=== PATIENT | male | born 1950 | race Caucasian/White ===

== ENCOUNTER 2018-05-09 21:43 | Emergency (ER) | payer OTHER, MEDICARE ==
[2018-05-09] MEDS ORDERED: Bacitracin Oint 1 GM U/D Packet ONE (22:56)
[2018-05-09] MEDS ORDERED: Bacitracin Oint 1 GM U/D Packet TOP ONE (22:56)
--- NOTE | 2018-05-09 22:56 | EDM.PDOC ---
ED HPI GENERAL MEDICAL PROBLEM - General Chief Complaint: General Stated Complaint: FISH HOOK LT PINKY Time Seen by Provider: 05/09/18 22:48 Source of Information: Reports: Patient History Limitations: Reports: No Limitations - History of Present Illness INITIAL COMMENTS - FREE TEXT/NARRATIVE: fish hook to left 5th finger. this is a 67 year old male present to ER for removal of fish hook. He was fishing, got a hook to the finger. no other concerns. Onset: Sudden Duration: Hour(s): Location: Reports: Upper Extremity, Left Quality: Reports: Ache Severity: Mild Improves with: Reports: Immobilization Worsens with: Reports: Movement Context: Reports: Other (fish hook) Associated Symptoms: Reports: No Other Symptoms Left 5-Little finger Pain Score (Numeric/FACES): 1 - Related Data Allergies Allergy/AdvReac Type Severity Reaction Status Date / Time azithromycin Allergy Rash Verified 05/09/18 22:26 Home Meds: Home Meds Ascorbate Calcium [Vitamin C] 1 tab PO DAILY 05/09/18 [History] Aspirin 1 tab PO DAILY 05/09/18 [History] Calcium Carbonate/Vitamin D3 [Calcium 500 mg-Vit D3 600 Unit] 1 tab PO DAILY [History] Cholecalciferol (Vitamin D3) [Vitamin D3] 1 tab PO DAILY 05/09/18 [History] Mometasone Furoate [Nasonex] 2 dose NASBOTH BID 05/09/18 [History] Naproxen 1 tab PO DAILY 05/09/18 [History] Omeprazole 1 tab PO DAILY 05/09/18 [History] Tamsulosin [Flomax] 1 tab PO DAILY 05/09/18 [History] Past Medical History Respiratory History: Reports: Asthma Genitourinary History: Reports: Retention, Urinary Oncologic (Cancer) History: Reports: Basal Cell Carcinoma - Infectious Disease History Infectious Disease History: Reports: Chicken Pox, Measles, Mumps - Past Surgical History HEENT Surgical History: Reports: Polypectomy, Other (See Below) Other HEENT Surgeries/Procedures: sinus surgery x3 GI Surgical History: Reports: Colonoscopy Musculoskeletal Surgical History: Reports: Other (See Below) Other Musculoskeletal Surgeries/Procedures:: discectomy x3 Social & Family History - Family History Family Medical History: Noncontributory - Tobacco Use Smoking Status *Q: Current Every Day Smoker Years of Tobacco use: 30 Packs/Tins Daily: 0.7 - Caffeine Use Caffeine Use: Reports: Coffee - Recreational Drug Use Recreational Drug Use: No ED ROS GENERAL - Review of Systems Review Of Systems: See Below Constitutional: Reports: No Symptoms Skin: Reports: Other (fish hook to left 5th finger) Hematologic/Lymphatic: Reports: No Symptoms Immunologic: Reports: No Symptoms ED EXAM, GENERAL - Physical Exam Exam: See Below Exam Limited By: No Limitations General Appearance: Alert, WD/WN, No Apparent Distress Neurological: Alert, Oriented, No Motor/Sensory Deficits Skin Exam: Warm, Dry, Other (f.b. to left 5th finger) ED GENERAL MEDICAL PROCEDURES - Laceration/Wound Repair Left Anterior Digit - 5th (Baby) Appearance: Subcutaneous Distal NVT: Neuro & Vascular Intact, No Tendon Injury Anesthetic Type: Local Local Anesthesia - Lidocaine (Xylocaine): 1% Plain Local Anesthetic Volume: 1cc Skin Prep: Chlorhexidine (Hibiciens), Providone-Iodine (Betadine) Complications: No Progress/Comments: 5th finger with fish hook; injected lidocaine 1% , anaesthesia obtained, fish hook removed without complication. bacitracin ointment and bandage applied by nursing. discussed wound care and monitor for signs of infections. agree with plan of care. Course - Vital Signs Last Recorded V/S: Last Vital Signs Temp 36.1 C 05/09/18 22:34 Pulse 78 05/09/18 22:34 Resp 16 05/09/18 22:34 BP 108/75 05/09/18 22:34 Pulse Ox 98 05/09/18 22:34 - Orders/Labs/Meds Meds: Medications Discontinued Medications Generic Name Dose Route Start Last Admin Trade Name Roxana PRN Reason Stop Dose Admin Bacitracin 1 dose 05/09/18 22:56 05/09/18 23:00 Bacitracin Oint 1 Gm TOP 05/09/18 22:57 1 dose ONETIME ONE Administration Bacitracin Confirm 05/09/18 22:56 05/09/18 23:00 Bacitracin Oint 1 Gm Administered 05/09/18 22:57 Not Given Dose 1 dose .ROUTE .STK-MED ONE Lidocaine HCl 5 ml 05/09/18 22:53 05/09/18 23:00 Xylocaine-Mpf 1% INJECT 05/09/18 22:54 5 ml ONETIME ONE Administration Departure - Departure Time of Disposition: 22:53 Disposition: Home, Self-Care 01 Clinical Impression: Fish hook injury of finger Qualifiers: Encounter type: initial encounter Laterality: left Qualified Code(s): S69.92XA - Unspecified injury of left wrist, hand and finger(s), initial encounter - Discharge Information Instructions: Puncture Wound, [id number] Referrals: PCP,None [Primary Care Provider] - Forms: ED Department Discharge Care Plan Goals: fish hook in 5th finger -removed, apply bacitracin ointment to finger 2 times a day for 2 days then keep clean and dry -monitor for signs of infection return to Clinic or ER for if develops any redness, drainage or increased pain. - Problem List & Annotations (1) Fish hook injury of finger SNOMED Code(s): 60407951 Code(s): S69.90XA - UNSP INJURY OF UNSP WRIST, HAND AND FINGER(S), INIT ENCNTR Status: Acute Priority: High Current Visit: Yes Qualifiers: Encounter type: initial encounter Laterality: left Qualified Code(s): S69.92XA - Unspecified injury of left wrist, hand and finger(s), initial encounter - Problem List Review Problem List Initiated/Reviewed/Updated: Yes - Assessment/Plan Plan: fish hook in 5th finger left -removed, apply bacitracin ointment to finger 2 times a day for 2 days then keep clean and dry -monitor for signs of infection return to Clinic or ER for if develops any redness, drainage or increased pain.
== END 2018-05-09 23:10 | disposition home or self-care (01) ==
LOC: JP.ED 21:43
DX: S60.457A Superficial foreign body of left little finger, initial encounter (principal); F17.210 Nicotine dependence, cigarettes, uncomplicated; Z88.1 Allergy status to other antibiotic agents; Z79.82 Long term (current) use of aspirin; Z79.899 Other long term (current) drug therapy; W45.8XXA Other foreign body or object entering through skin, initial encounter
CPT/HCPCS: 99283

== ENCOUNTER 2018-06-09 12:50 | Emergency (ER) | payer MEDICARE, OTHER ==
[2018-06-09] MEDS ORDERED: Bacitracin Oint 1 GM U/D Packet TOP ONE (13:12)
--- NOTE | 2018-06-09 13:38 | EDM.PDOC ---
ED HPI GENERAL MEDICAL PROBLEM - General Chief Complaint: Skin Complaint Stated Complaint: FISH HOOK Time Seen by Provider: 06/09/18 13:15 Source of Information: Reports: Patient History Limitations: Reports: No Limitations - History of Present Illness INITIAL COMMENTS - FREE TEXT/NARRATIVE: 68 yo male here with a fish hook in his L index. Tetanus is UTD. 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 (see below) (none) - Related Data Allergies Allergy/AdvReac Type Severity Reaction Status Date / Time azithromycin Allergy Rash Verified 05/09/18 22:26 Home Meds: Home Meds Ascorbate Calcium [Vitamin C] 1 tab PO DAILY 05/09/18 [History] Aspirin 1 tab PO DAILY 05/09/18 [History] Calcium Carbonate/Vitamin D3 [Calcium 500 mg-Vit D3 600 Unit] 1 tab PO DAILY [History] Cholecalciferol (Vitamin D3) [Vitamin D3] 1 tab PO DAILY 05/09/18 [History] Mometasone Furoate [Nasonex] 2 dose NASBOTH BID 05/09/18 [History] Naproxen 1 tab PO DAILY 05/09/18 [History] Omeprazole 1 tab PO DAILY 05/09/18 [History] Tamsulosin [Flomax] 1 tab PO DAILY 05/09/18 [History] predniSONE 06/09/18 [History] Past Medical History Respiratory History: Reports: Asthma Genitourinary History: Reports: Retention, Urinary Oncologic (Cancer) History: Reports: Basal Cell Carcinoma - Infectious Disease History Infectious Disease History: Reports: Chicken Pox, Measles, Mumps - Past Surgical History HEENT Surgical History: Reports: Polypectomy, Other (See Below) Other HEENT Surgeries/Procedures: sinus surgery x3 GI Surgical History: Reports: Colonoscopy Musculoskeletal Surgical History: Reports: Other (See Below) Other Musculoskeletal Surgeries/Procedures:: discectomy x3 Social & Family History - Family History Family Medical History: Noncontributory - Tobacco Use Smoking Status *Q: Former Smoker Used Tobacco, but Quit: Yes Month/Year Tobacco Last Used: 1 - Caffeine Use Caffeine Use: Reports: None ED ROS GENERAL - Review of Systems Review Of Systems: See Below Constitutional: Reports: No Symptoms Musculoskeletal: Reports: No Symptoms Skin: Reports: Wound (puncture wound L index) Neurological: Reports: No Symptoms ED EXAM, SKIN/RASH Exam: See Below Exam Limited By: No Limitations General Appearance: Alert, WD/WN, No Apparent Distress Extremities: Normal Inspection Neurological: Alert, Oriented, CN II-XII Intact, Normal Cognition Psychiatric: Normal Affect, Normal Mood Skin: Warm, Dry, Normal Color, No Rash, Wound/Incision Location, Skin: Upper Extremity, Left Characteristics: Other (puncture from fish hook) Associated features: Tenderness Course - Vital Signs Text/Narrative:: Area prep'd with Betadine, anesth with 1% lidocaine, aye of fish hook covered with #18 gauge and backed out. Dressing per RN. Last Recorded V/S: Last Vital Signs Temp 35.2 C L 06/09/18 13:04 Pulse 82 06/09/18 13:04 Resp 18 06/09/18 13:04 BP 158/77 H 06/09/18 13:04 Pulse Ox 98 06/09/18 13:04 - Orders/Labs/Meds Meds: Medications Discontinued Medications Generic Name Dose Route Start Last Admin Trade Name Leonardoq PRN Reason Stop Dose Admin Bacitracin 1 dose 06/09/18 13:12 06/09/18 13:15 Bacitracin Oint 1 Gm TOP 06/09/18 13:13 1 dose ONETIME ONE Administration Lidocaine HCl 5 ml 06/09/18 13:12 06/09/18 13:15 Xylocaine-Mpf 1% INJECT 06/09/18 13:13 5 ml ONETIME ONE Administration Departure - Departure Time of Disposition: 13:36 Disposition: Home, Self-Care 01 Condition: Good Clinical Impression: Fish hook injury of finger of left hand Qualifiers: Encounter type: initial encounter Qualified Code(s): S69.92XA - Unspecified injury of left wrist, hand and finger(s), initial encounter - Discharge Information *PRESCRIPTION DRUG MONITORING PROGRAM REVIEWED*: Not Applicable *COPY OF PRESCRIPTION DRUG MONITORING REPORT IN PATIENT OPAL: Not Applicable Referrals: PCP,None [Primary Care Provider] - Additional Instructions: Clean wound twice daily with soap and water. Dry. Apply Bacitracin and a new dressing. Recheck for signs of infection. Keep area clean x 3 days.
== END 2018-06-09 13:41 | disposition home or self-care (01) ==
LOC: JP.ED 12:50
DX: S60.451A Superficial foreign body of left index finger, initial encounter (principal); J45.909 Unspecified asthma, uncomplicated; Z88.1 Allergy status to other antibiotic agents; Z79.82 Long term (current) use of aspirin; Z79.899 Other long term (current) drug therapy; Z87.891 Personal history of nicotine dependence; W45.8XXA Other foreign body or object entering through skin, initial encounter
CPT/HCPCS: 99283

== ENCOUNTER 2022-06-21 22:10 | Emergency (ER) | payer MEDICARE, BC ==
[2022-06-21] MEDS ORDERED: Lidocaine 1% 5 ML VIAL INJECT ONE (23:06)
[2022-06-21] MEDS ORDERED: Bacitracin Oint 1 GM U/D Packet TOP ONE (23:12)
== END 2022-06-22 00:04 | disposition home or self-care (01) ==
LOC: JP.ED 22:10
DX: S60.552A Superficial foreign body of left hand, initial encounter (principal); I10 Essential (primary) hypertension; F17.210 Nicotine dependence, cigarettes, uncomplicated; Z88.1 Allergy status to other antibiotic agents; Z79.899 Other long term (current) drug therapy; Z79.82 Long term (current) use of aspirin; W45.8XXA Other foreign body or object entering through skin, initial encounter
CPT/HCPCS: 64450; 99283